=== PATIENT | male | born 1965 | race Two or more races ===

== ENCOUNTER 2020-07-10 21:57 | Emergency (ER) | payer SELFPAY ==
[~2020-07-10] VITALS: Ht 180.3 cm; Wt 77.1 kg
[2020-07-10 22:00] VITALS: BP 109/62
--- NOTE | 2020-07-10 22:00 | NUR ---
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 He states he felt a "pop" behind his testicle. He also c/o flank pain. He is aaox4, breathing is even and unlabored. Patient was recently seen at [facility] where he was told he had passed a kidney stone. Patient is resting in bed with safety measures in place. Denies SOB, cough, fever or chills.
--- NOTE | 2020-07-10 22:05 | Emergency Room Report ---
History of Present Illness General Chief Complaint: Male Urogenital Problems Source: Patient, EMS Present Illness HPI Disclaimer: Please note that this report is being documented using DRAGON technology. This can lead to erroneous entry secondary to incorrect interpretation by the dictating instrument. HPI: 54-year-old male presents for evaluation of testicular pain. Patient states approximately 30 minutes ago he was drinking a soda and felt a "pop" behind his left testicle. Notes pain radiating from the left testicle down the leg. Pain is improving. Exacerbated by walking. Denies dysuria, hematuria, testicular swelling, urethral discharge or urethral bleeding. Denies abdominal pain, nausea, vomiting or diarrhea. He was seen at [facility] also for testicular and flank pain earlier today. He states labs, urinalysis and CT scan were done. Patient states he was told he recently passed a kidney stone which he has a history of. Denies fever, chills. Denies sexual intercourse for several years. 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 EOMI. Cardiovascular: RRR. S1 and S2 normal. No murmur appreciated Resp: Normal work of breathing. No cough, wheezing or crackles appreciated Abdomen: Abdomen is soft, nondistended. Nontender : Uncircumcised male. No urethral bleeding. No overlying vesicles, erythema, edema. Left testicle somewhat high riding. Tenderness palpation over the posterior aspect of the left testicle. No edema. Skin: Intact. No abrasions, laceration or rash over the exposed skin MSK: Normal tone and bulk. Moving all extremities. No obvious deformity. Neuro: Awake and alert. Mentating appropriately. Medical Decision Making Diagnostic Impression: Primary Impression: Hydrocele of testis Additional Impressions: Lymph nodes enlarged Testicular pain ER Course Is a 54-year-old male recently diagnosed with kidney stone presenting for evaluation of left testicle pain. Differential includes but is not limited to referred pain, hernia, epididymitis, orchitis, testicular torsion, UTI among others. Urinalysis does not appear infectious. Renal function and labs otherwise unremarkable. Ultrasound of the scrotum was obtained does not show torsion, signs of epididymitis. Does show bilateral hydroceles and small cyst as well as enlarged lymph nodes in the abdomen bilaterally. No hernia appreciated. Patient can follow-up for these findings as an outpatient. May be experiencing pain in the testicle secondary to the recently passed kidney stone that was diagnosed at his earlier visit at another hospital today. Will discharge with outpatient follow-up. Discussed reasons to return to ER. He understands and agrees with this treatment plan. Laboratory Tests Test 07/10/20 22:15 07/10/20 22:37 White Blood Count 7.4 K/UL (4.8-10.8) Red Blood Count 4.98 M/UL (4.70-6.10) Hemoglobin 15.6 G/DL (14.2-18.0) Hematocrit 46.6 % (42.0-52.0) Mean Corpuscular Volume 94 FL (80-99) Mean Corpuscular Hemoglobin 31.4 PG (27.0-31.0) H Mean Corpuscular Hemoglobin Concent 33.6 G/DL (32.0-36.0) Red Cell Distribution Width 11.7 % (11.6-14.8) Platelet Count 322 K/UL (150-450) Mean Platelet Volume 5.5 FL (6.5-10.1) L Neutrophils (%) (Auto) 70.2 % (45.0-75.0) Lymphocytes (%) (Auto) 16.6 % (20.0-45.0) L Monocytes (%) (Auto) 9.2 % (1.0-10.0) Eosinophils (%) (Auto) 2.9 % (0.0-3.0) Basophils (%) (Auto) 1.0 % (0.0-2.0) Sodium Level 139 MMOL/L (136-145) Potassium Level 3.7 MMOL/L (3.5-5.1) Chloride Level 104 MMOL/L (98-107) Carbon Dioxide Level 30 MMOL/L (21-32) Anion Gap 5 mmol/L (5-15) Blood Urea Nitrogen 16 mg/dL (7-18) Creatinine 1.0 MG/DL (0.55-1.30) Estimated Glomerular Filtration Rate > 60 mL/min (>60) Glucose Level 99 MG/DL (74-106) Calcium Level 9.2 MG/DL (8.5-10.1) Lipase 143 U/L (73-393) Urine Color Yellow Urine Appearance Clear Urine pH 6.5 (4.5-8.0) Urine Specific [place] 1.020 (1.005-1.035) Urine Protein 1+ (NEGATIVE) H Urine Glucose (UA) Negative (NEGATIVE) Urine Ketones Negative (NEGATIVE) Urine Blood Negative (NEGATIVE) Urine Nitrite Negative (NEGATIVE) Urine Bilirubin Negative (NEGATIVE) Urine Urobilinogen Normal MG/DL (0.0-1.0) Urine Leukocyte Esterase 1+ (NEGATIVE) H Urine RBC 0-2 /HPF (0 - 0) H Urine WBC 0-2 /HPF (0 - 0) Urine Squamous Epithelial Cells None /LPF (NONE/OCC) Urine Bacteria None /HPF (NONE) CT/MRI/US Diagnostic Results CT/MRI/US Diagnostic Results : Impression Final Report EXAM: US Scrotum CLINICAL HISTORY: PAIN TECHNIQUE: Real-time ultrasound of the scrotum with color Doppler and image documentation. COMPARISON: No relevant prior studies available. FINDINGS: Right testicle: Right testicle measures 4.9 x 2.3 x 3.6 cm. Homogeneous echotexture in the right testicle. Color flow in the right testicle. No torsion. Left testicle: Left testicle measures 4.5 x 2.2 x 3.3 cm. Homogeneous echotexture in the left testicle. Color flow, and the left testicle. No torsion. Epididymides: Small cyst in the head of the left epididymis measuring 4 x 5 mm. Scrotum: Tiny bilateral hydrocele. IMPRESSION: 1. No sonographic evidence of torsion. 2. No intratesticular mass. 3. Small left epididymal cyst. 4. Tiny bilateral hydrocele Radiologist: Norma Mares M.D. Electronically Signed: 07/11/20 03:38 Study ready at 03:33 and initial results transmitted at 03:38 Last Vital Signs Date Time Temp Pulse Resp B/P (MAP) Pulse Ox O2 Delivery O2 Flow Rate FiO2 07/10/20 21:49 97.9 88 16 109/62 (78) 97 Room Air Disposition: HOME, SELF-CARE Condition: Stable Scripts Hydrocodone Bit/Acetaminophen 5-325* (NORCO 5-325 TABLET*) 1 Each Tablet 1 TAB ORAL Q6H PRN for FOR PAIN, #10 TAB 0 Refills Prov: Tremayne Mera MD 07/11/20 Ibuprofen* (MOTRIN*) 600 Mg Tablet 600 MG ORAL Q6H PRN for For Pain, #30 TAB 0 Refills Prov: Tremayne Mera MD 07/11/20 Tremayne Mera MD Jul 10, 2020 22:05
[2020-07-10] MEDS ORDERED: Morphine Sulfate 4mg/ml Inj (IV USE ONLY) IVP ONE (22:15)
[2020-07-10 22:40] LABS: EOSINOPHILS % (AUTO) 2.9 % (0.0-3.0); HEMATOCRIT 46.6 % (42.0-52.0); HEMOGLOBIN 15.6 G/DL (14.2-18.0); LYMPHOCYTES % (AUTO) 16.6 % (20.0-45.0); MEAN CORPUSCULAR VOLUME 94 FL (80-99); MONOCYTES % (AUTO) 9.2 % (1.0-10.0); NEUTROPHILS % (AUTO) 70.2 % (45.0-75.0); PLATELET COUNT 322 K/UL (150-450); RED BLOOD COUNT 4.98 M/UL (4.70-6.10); RED CELL DISTRIBUTION WIDTH 11.7 % (11.6-14.8); WHITE BLOOD COUNT 7.4 K/UL (4.8-10.8)
[2020-07-10 22:44] LABS: ANION GAP 5 mmol/L (5-15); BLOOD UREA NITROGEN 16 mg/dL (7-18); CALCIUM 9.2 MG/DL (8.5-10.1); CARBON DIOXIDE 30 MMOL/L (21-32); CHLORIDE 104 MMOL/L (98-107); POTASSIUM 3.7 MMOL/L (3.5-5.1); SODIUM 139 MMOL/L (136-145)
[2020-07-10 23:45] LABS: APPEARANCE,URINE CLEAR; BILIRUBIN, URINE NEGATIVE (NEGATIVE); GLUCOSE, URINE (UA) NEGATIVE (NEGATIVE); KETONES,URINE NEGATIVE (NEGATIVE); LEUKOCYTE ESTERASE ,URINE 1+ (NEGATIVE); NITRITE,URINE NEGATIVE (NEGATIVE); PH,URINE 6.5 (4.5-8.0); PROTEIN,URINE 1+ (NEGATIVE); UROBILINOGEN,URINE NORMAL MG/DL (0.0-1.0)
[2020-07-10 23:54] LABS: COLOR,URINE YELLOW
--- NOTE | 2020-07-11 00:40 | NUR ---
ED Nurse Note: US bedside.
--- NOTE | 2020-07-11 01:20 | NUR ---
ED Nurse Note: Patient c/o 03/26 testicle pain again after completion of US. aware.
[2020-07-11] MEDS ORDERED: IBUPROFEN600 M1 ORAL (01:26)
[2020-07-11] MEDS ORDERED: NORCO 5-325 TA1 EAC1 ORAL (01:39)
[2020-07-11] MEDS ORDERED: Morphine Sulfate 2mg/ml Inj(IV/IM USE ONLY) IM ONE (01:45)
[2020-07-11 01:50] VITALS: BP 125/66
--- NOTE | 2020-07-11 01:50 | NUR ---
ED Nurse Note: EVETTE spoke with patient. He is resting in bed, NAD noted.
--- NOTE | 2020-07-11 03:30 | NUR ---
ED Nurse Note: Patient is sleeping at this time. Breathing even and unlabored. No acute distress.
--- NOTE | 2020-07-11 03:39 | Diagnostic Imaging Report ---
EXAM: US Scrotum CLINICAL HISTORY: PAIN TECHNIQUE: Real-time ultrasound of the scrotum with color Doppler and image documentation. COMPARISON: No relevant prior studies available. FINDINGS: Right testicle: Right testicle measures 4.9 x 2.3 x 3.6 cm. Homogeneous echotexture in the right testicle. Color flow in the right testicle. No torsion. Left testicle: Left testicle measures 4.5 x 2.2 x 3.3 cm. Homogeneous echotexture in the left testicle. Color flow, and the left testicle. No torsion. Epididymides: Small cyst in the head of the left epididymis measuring 4 x 5 mm. Scrotum: Tiny bilateral hydrocele. IMPRESSION: 1. No sonographic evidence of torsion. 2. No intratesticular mass. 3. Small left epididymal cyst. 4. Tiny bilateral hydrocele
[2020-07-11 05:20] VITALS: BP 124/70
--- NOTE | 2020-07-11 05:20 | NUR ---
ER DISCHARGE NOTE: Patient is cleared to be discharged per ERMD, pt is aox4, on room air, with stable vital signs. pt was given dc and prescription instructions, pt was able to verbalize understanding, pt id band and iv site removed without complications. pt is able to ambulate with steady gait. pt took all belongings.
== END 2020-07-11 05:20 | disposition home or self-care (01) ==
LOC: EDBD 21:57 → EMR 22:20
DX: N43.3 Hydrocele, unspecified (principal); R59.9 Enlarged lymph nodes, unspecified; Z87.442 Personal history of urinary calculi; N50.3 Cyst of epididymis
CPT/HCPCS: 36415; 76700; 76870; 80048; 81003; 83690; 85025; 96372; 96374; 99284; J2270

== ENCOUNTER 2020-07-11 20:28 | Emergency (ER) | payer SELFPAY ==
[~2020-07-11] VITALS: Ht 165.1 cm; Wt 72.6 kg
[~2020-07-11 20:28] MED LIST: IBUPROFEN600 M1 ORAL; NORCO 5-325 TA1 EAC1 ORAL
[2020-07-11 20:44] VITALS: BP 126/75
[2020-07-11] MEDS ORDERED: Metoclopramide 10mg/2ml Inj IVP ONE (20:45)
[2020-07-11] MEDS ORDERED: DiphenhydrAMINE 50mg/ml Inj IVP ONE (20:45)
[2020-07-11] MEDS ORDERED: Ketorolac 30mg Inj IV ONE (20:45)
--- NOTE | 2020-07-11 20:45 | Emergency Room Report ---
History of Present Illness General Chief Complaint: Abdominal Pain Source: Patient, EMS Present Illness HPI Patient returns with left flank and left lower quadrant pain rating down into the testicle. He was seen last night and had an ultrasound done that showed a hydrocele. It was felt that he had passed a kidney stone. According to last night's notes he had said that he had a CT done at another facility that revealed a kidney stone yesterday morning. He denies this to me now. He states the pain is severe and constant. He feels that there is some numbness in his left thigh. The patient denies dysuria or hematuria. He rates the pain severe to me but reports to the triage nurse that the pain is 2/10 at this time. No change in his bowels. Patient denies alcohol or drugs. Patient's been nauseated but denies vomiting. The patient is uncertain whether he has been exposed to Covid positive contacts but denies any Covid symptoms. Allergies: Coded Allergies: No Known Allergies (Unverified , 07/10/20) COVID-19 Screening Contact w/high risk pt: No Experienced COVID-19 symptoms?: No COVID-19 Testing performed CHARTER PILOT: No Patient History Social History: Reports: smoking; Denies: alcohol use, drug use Social History Narrative Patient gives an address in [place]. He will not answer where he staying at this time. Reviewed Nursing Documentation: PMH: Agreed; PSxH: Agreed Review of Systems All Other Systems: negative except mentioned in HPI Physical Exam Vital Signs Date Time Temp Pulse Resp B/P (MAP) Pulse Ox O2 Delivery O2 Flow Rate FiO2 07/11/20 20:29 98.2 72 16 126/75 (92) 100 Room Air Sp02 EP Interpretation: reviewed, normal General Appearance: no apparent distress - laying on floor in RME, non-toxic Head: normocephalic Eyes: bilateral eye PERRL, bilateral eye Scleral Injection ENT: moist mucus membranes Neck: supple Respiratory: lungs clear, normal breath sounds Cardiovascular #1: regular rate, rhythm Cardiovascular #2: 2+ radial (R) Gastrointestinal: no rebound, guarding - anticipatory, tenderness, other - no referred pain Musculoskeletal: back normal, normal range of motion, gait/station normal Neurologic: alert, oriented x3, grossly normal Psychiatric: depressed affect Skin: no rash, warm/dry, other - Patient fully clothed Medical Decision Making Diagnostic Impression: Primary Impression: Left flank pain ER Course Patient presents with left flank pain. Differential includes renal stone, musc le strain, diverticulitis, testicular hydrocele, UTI amongst others. Patient evaluated with labs and ultrasound of the kidneys. Patient treated with IV hydration, Reglan, Benadryl and Toradol. Labs remarkable for normal white count. CMP unremarkable. Urinalysis clear. Patient wanted to eat and and ate. Sleeping in no distress. Discussed findings and treatment plan with patient. As he is in no distress and without pain at this time renal ultrasound was not performed. (Initial order had been canceled by the computer.) Patient stable for outpatient observation and treatment. Laboratory Tests Test 07/11/20 21:00 07/11/20 21:25 07/11/20 22:22 White Blood Count 7.9 K/UL (4.8-10.8) Red Blood Count 4.91 M/UL (4.70-6.10) Hemoglobin 15.1 G/DL (14.2-18.0) Hematocrit 45.7 % (42.0-52.0) Mean Corpuscular Volume 93 FL (80-99) Mean Corpuscular Hemoglobin 30.8 PG (27.0-31.0) Mean Corpuscular Hemoglobin Concent 33.1 G/DL (32.0-36.0) Red Cell Distribution Width 11.7 % (11.6-14.8) Platelet Count 339 K/UL (150-450) Mean Platelet Volume 5.5 FL (6.5-10.1) L Neutrophils (%) (Auto) 68.6 % (45.0-75.0) Lymphocytes (%) (Auto) 18.6 % (20.0-45.0) L Monocytes (%) (Auto) 8.2 % (1.0-10.0) Eosinophils (%) (Auto) 3.1 % (0.0-3.0) H Basophils (%) (Auto) 1.6 % (0.0-2.0) Prothrombin Time 11.2 SEC (9.30-11.50) Prothrombin Time INR 1.0 (0.9-1.1) Activated Partial Thromboplast Time 27 SEC (23-33) Sodium Level 137 MMOL/L (136-145) Potassium Level 3.4 MMOL/L (3.5-5.1) L Chloride Level 104 MMOL/L (98-107) Carbon Dioxide Level 27 MMOL/L (21-32) Anion Gap 6 mmol/L (5-15) Blood Urea Nitrogen 16 mg/dL (7-18) Creatinine 1.0 MG/DL (0.55-1.30) Estimated Glomerular Filtration Rate > 60 mL/min (>60) Glucose Level 102 MG/DL (74-106) Calcium Level 8.3 MG/DL (8.5-10.1) L Total Bilirubin 0.3 MG/DL (0.2-1.0) Aspartate Amino Transferase (AST) 16 U/L (15-37) Alanine Aminotransferase (ALT) 19 U/L (12-78) Alkaline Phosphatase 53 U/L (46-116) Total Creatine Kinase 175 U/L (26-308) Troponin I 0.004 ng/mL (0.000-0.056) Total Protein 6.5 G/DL (6.4-8.2) Albumin 3.2 G/DL (3.4-5.0) L Globulin 3.3 g/dL Albumin/Globulin Ratio 1.0 (1.0-2.7) Lipase 128 U/L (73-393) Serum Alcohol < 3 mg/dL Urine Color Pale yellow Urine Appearance Clear Urine pH 5 (4.5-8.0) Urine Specific [place] 1.025 (1.005-1.035) Urine Protein Negative (NEGATIVE) Urine Glucose (UA) Negative (NEGATIVE) Urine Ketones 1+ (NEGATIVE) H Urine Blood Negative (NEGATIVE) Urine Nitrite Negative (NEGATIVE) Urine Bilirubin Negative (NEGATIVE) Urine Urobilinogen Normal MG/DL (0.0-1.0) Urine Leukocyte Esterase 1+ (NEGATIVE) H Urine RBC 0 /HPF (0 - 0) Urine WBC 0-2 /HPF (0 - 0) Urine Squamous Epithelial Cells Occasional /LPF Urine Bacteria Occasional /HPF (NONE) Urine Opiates Screen Negative (NEGATIVE) Urine Barbiturates Screen Negative (NEGATIVE) Phencyclidine (PCP) Screen Negative (NEGATIVE) Urine Amphetamines Screen Negative (NEGATIVE) Urine Benzodiazepines Screen Negative (NEGATIVE) Urine Cocaine Screen Negative (NEGATIVE) Urine Marijuana (THC) Screen Negative (NEGATIVE) CT/MRI/US Diagnostic Results CT/MRI/US Diagnostic Results : Imaging Test Ordered: Scrotal ultrasound from yesterday Impression 1. No sonographic evidence of torsion. 2. No intratesticular mass. 3. Small left epididymal cyst. 4. Tiny bilateral hydrocele Last Vital Signs Date Time Temp Pulse Resp B/P (MAP) Pulse Ox O2 Delivery O2 Flow Rate FiO2 07/11/20 23:15 98.2 73 17 131/75 99 Room Air Status: improved Disposition: HOME, SELF-CARE Condition: Improved Referrals: NOT CHOSEN IPA/,REFERRING (PCP) Hubert Conley MD Jul 11, 2020 20:44
[2020-07-11 21:17] LABS: BASOPHILS % (AUTO) 1.6 % (0.0-2.0); EOSINOPHILS % (AUTO) 3.1 % (0.0-3.0); HEMATOCRIT 45.7 % (42.0-52.0); HEMOGLOBIN 15.1 G/DL (14.2-18.0); LYMPHOCYTES % (AUTO) 18.6 % (20.0-45.0); MEAN CORPUSCULAR VOLUME 93 FL (80-99); MONOCYTES % (AUTO) 8.2 % (1.0-10.0); NEUTROPHILS % (AUTO) 68.6 % (45.0-75.0); PLATELET COUNT 339 K/UL (150-450); RED BLOOD COUNT 4.91 M/UL (4.70-6.10); RED CELL DISTRIBUTION WIDTH 11.7 % (11.6-14.8); WHITE BLOOD COUNT 7.9 K/UL (4.8-10.8)
[2020-07-11 21:59] LABS: ANION GAP 6 mmol/L (5-15); BLOOD UREA NITROGEN 16 mg/dL (7-18); CALCIUM 8.3 MG/DL (8.5-10.1); CARBON DIOXIDE 27 MMOL/L (21-32); CHLORIDE 104 MMOL/L (98-107); POTASSIUM 3.4 MMOL/L (3.5-5.1); SODIUM 137 MMOL/L (136-145)
[2020-07-11 22:05] LABS: ALANINE AMINOTRANSFERASE 19 U/L (12-78); ALBUMIN 3.2 G/DL (3.4-5.0); ALKALINE PHOSPHATASE 53 U/L (46-116); ASPARTATE AMINO TRANSFERASE 16 U/L (15-37); BILIRUBIN,TOTAL 0.3 MG/DL (0.2-1.0); CREATINE KINASE 175 U/L (26-308)
[2020-07-11 22:55] LABS: APPEARANCE,URINE CLEAR; BILIRUBIN, URINE NEGATIVE (NEGATIVE); GLUCOSE, URINE (UA) NEGATIVE (NEGATIVE); KETONES,URINE 1+ (NEGATIVE); LEUKOCYTE ESTERASE ,URINE 1+ (NEGATIVE); NITRITE,URINE NEGATIVE (NEGATIVE); PH,URINE 5 (4.5-8.0); PROTEIN,URINE NEGATIVE (NEGATIVE); UROBILINOGEN,URINE NORMAL MG/DL (0.0-1.0)
[2020-07-11 23:00] VITALS: BP 121/73
[2020-07-11 23:02] LABS: COLOR,URINE PALE YELLOW
[2020-07-11 23:15] VITALS: BP 131/75
== END 2020-07-11 23:15 | disposition other institution (70) ==
LOC: EDBD 20:28 → EMR 20:39
DX: R10.9 Unspecified abdominal pain (principal); Z87.442 Personal history of urinary calculi; R20.0 Anesthesia of skin; F17.200 Nicotine dependence, unspecified, uncomplicated; N50.3 Cyst of epididymis; N43.3 Hydrocele, unspecified
CPT/HCPCS: 36415; 80053; 80307; 81003; 82550; 83690; 84484; 85025; 85610; 85730; 96374; 96375; 99284; G0480; J1200; J1885; J2765; J7040